=== PATIENT | male | born 1970 | race Caucasian/White ===

== ENCOUNTER 2018-10-02 11:57 | Inpatient (IN) | payer OTHER ==
[2018-10-02 12:29] LABS: ADD MAN DIFF? NO
[2018-10-02 12:34] LABS: WHITE BLOOD COUNT 5.9 10^3/ul (4.8-10.8)
[2018-10-02 12:34] LABS: BASOPHIL # 0.1 10^3/ul (0.0-0.1); EOSINOPHILS # 0.3 10^3/ul (0.0-0.5); EOSINOPHILS % 5.4 % (0.0-7.0); HEMOGLOBIN 7.7 g/dl (14.0-18.0); LYMPHOCYTES % 16.5 % (15.0-51.0); MEAN CORPUSCULAR HEMOGLOBIN 29.2 pg (29.0-33.0); MEAN CORPUSCULAR HGB CONC 32.1 g/dl (32.0-37.0); MEAN CORPUSCULAR VOLUME 90.9 fl (82.0-101.0); MEAN PLATELET VOLUME 11.1 fl (7.4-10.4); MONOCYTE # 0.6 10^3/ul (0.3-0.9); MONOCYTES % 9.6 % (0.0-11.0); NEUTROPHILS % 67.2 % (39.0-77.0); PLATELET COUNT 193 10^3/UL (140-415); RED BLOOD COUNT 2.64 10^6/ul (4.70-6.10); RED CELL DISTRIBUTION WIDTH 14.6 % (11.5-14.5)
[2018-10-02] MEDS: FUROSEMIDE 40 MG INJ IV ×2 (12:37→23:42)
[2018-10-02 12:53] LABS: ALANINE AMINOTRANSFERASE 23 IU/L (13-69); ALBUMIN 3.2 g/dl (3.3-4.9); ALBUMIN/GLOBULIN RATIO 1.03; ALKALINE PHOSPHATASE 103 IU/L (42-121); ANION GAP 7 (5-13); ASPARTATE AMINO TRANSFERASE 23 IU/L (15-46); BILIRUBIN,INDIRECT 0.5 mg/dl (0-1.1); BILIRUBIN,TOTAL 0.5 mg/dl (0.2-1.3); BLOOD UREA NITROGEN 44 mg/dl (7-20); CALCIUM 8.2 mg/dl (8.4-10.2); CARBON DIOXIDE 23 mmol/L (21-31); CHLORIDE 114 mmol/L (97-110); CREATININE 2.62 mg/dl (0.61-1.24); Estimated GFR 26 mL/min (>60); GLUCOSE 92 mg/dl (70-220); POTASSIUM 4.9 mmol/L (3.5-5.1); SODIUM 144 mmol/L (135-144); TOTAL PROTEIN 6.3 g/dl (6.1-8.1)
[2018-10-02 12:54] LABS: INR 0.95; PROTIME 12.8 Sec (11.9-14.9)
[2018-10-02 12:55] LABS: PARTIAL THROMBOPLASTIN TIME 31.5 Sec (23.0-35.0)
[2018-10-02 13:01] LABS: B-TYPE NATRIURETIC PEPTIDE 4070 PG/ML (0-125)
[2018-10-02 13:05] LABS: TROPONIN-I < 0.012 ng/ml (0.000-0.120)
[2018-10-02] MEDS ORDERED: ONDANSETRON 4 MG INJ IV ×2 (13:30→14:00)
[2018-10-02] MEDS ORDERED: ACETAMINOPHEN 325 MG TAB PO ×2 (13:30→14:00)
[2018-10-02] MEDS ORDERED: NITROGLYCERIN (SL) 0.4 MG TAB SL (14:00)
[2018-10-02] MEDS ORDERED: MAGNESIUM HYDROXIDE 30ML CUP PO (14:00)
[2018-10-02] MEDS ORDERED: DOCUSATE SODIUM 100 MG CAP PO (14:00)
[2018-10-02] MEDS ORDERED: NACL 0.9% 3 ML SYG IV (14:00)
[2018-10-02 14:01] LABS: HEMOGLOBIN A1C 5.8 % (0-5.9)
[2018-10-02] MEDS ORDERED: GLUCOSE GEL 15 GRAM TUBE BUCCAL (14:30)
[2018-10-02] MEDS ORDERED: GLUCOSE GEL 15 GRAM TUBE PO ×2 (14:30)
[2018-10-02] MEDS ORDERED: GLUCAGON 1 MG INJ IM (14:30)
[2018-10-02] MEDS ORDERED: DEXTROSE 50% 50 ML SYRINGE IV ×2 (14:30)
[2018-10-02 15:35] LABS: IRON 46 ug/dl (35-150)
[2018-10-02 15:45] LABS: % IRON SATURATION 25 % SAT (22-52); TOTAL IRON BINDING CAPACITY 183 ug/dl (241-421)
[2018-10-02 17:14] LABS: CK INDEX 1.2; TROPONIN-I < 0.012 ng/ml (0.000-0.120)
[2018-10-02 17:28] LABS: CK-MB 4.68 ng/ml (0.0-2.4); CREATINE KINASE 389 IU/L (23-200)
[2018-10-02] MEDS: NICOTINE (7 MG/24 HR) PATCH TRANSDERM (17:54)
[2018-10-02] MEDS ORDERED: BUMETANIDE 1 MG INJ IV (18:00)
[2018-10-02] MEDS: ATORVASTATIN 40 MG TAB PO (22:46)
[2018-10-02] MEDS: NIFEdipine (XL) 30 MG TAB PO (22:47)
[2018-10-02] MEDS: INSULIN ASPART [NOVOLOG] 3 ML PEN SC ×2 (23:13→23:41)
[2018-10-02] MEDS: HEPARIN 5,000 UNIT/1 ML VIAL SC (23:40)
[2018-10-02] MEDS: INSULIN GLARGINE [LANtus] 3 ML PEN SC (23:55)
[2018-10-03 01:27] LABS: CREATINE KINASE 368 IU/L (23-200)
[2018-10-03 01:37] LABS: CK INDEX 1.3; TROPONIN-I < 0.012 ng/ml (0.000-0.120)
[2018-10-03 01:45] LABS: CK-MB 4.72 ng/ml (0.0-2.4)
[2018-10-03] MEDS: PANTOPRAZOLE (EC) 40 MG TAB PO (06:30)
[2018-10-03] MEDS: FUROSEMIDE 40 MG INJ IV ×2 (06:31→17:10)
[2018-10-03 06:35] LABS: ADD MAN DIFF? NO
[2018-10-03 06:48] LABS: WHITE BLOOD COUNT 5.7 10^3/ul (4.8-10.8)
[2018-10-03 06:48] LABS: BASOPHIL # 0.1 10^3/ul (0.0-0.1); BASOPHILS % 1.1 % (0.0-2.0); EOSINOPHILS # 0.4 10^3/ul (0.0-0.5); EOSINOPHILS % 7.6 % (0.0-7.0); HEMOGLOBIN 7.4 g/dl (14.0-18.0); LYMPHOCYTES # 1.2 10^3/ul (0.8-2.9); LYMPHOCYTES % 20.5 % (15.0-51.0); MEAN CORPUSCULAR HEMOGLOBIN 29.5 pg (29.0-33.0); MEAN CORPUSCULAR HGB CONC 32.2 g/dl (32.0-37.0); MEAN CORPUSCULAR VOLUME 91.6 fl (82.0-101.0); MEAN PLATELET VOLUME 11.6 fl (7.4-10.4); MONOCYTE # 0.5 10^3/ul (0.3-0.9); MONOCYTES % 9.2 % (0.0-11.0); NEUTROPHIL # 3.5 10^3/ul (1.6-7.5); NEUTROPHILS % 61.4 % (39.0-77.0); PLATELET COUNT 188 10^3/UL (140-415); RED BLOOD COUNT 2.51 10^6/ul (4.70-6.10); RED CELL DISTRIBUTION WIDTH 14.4 % (11.5-14.5)
[2018-10-03 07:05] LABS: CREATINE KINASE 289 IU/L (23-200)
[2018-10-03 07:05] LABS: URIC ACID 8.4 mg/dl (3.1-7.9)
[2018-10-03 07:26] LABS: ANION GAP 5 (5-13); BLOOD UREA NITROGEN 45 mg/dl (7-20); CALCIUM 8.3 mg/dl (8.4-10.2); CARBON DIOXIDE 24 mmol/L (21-31); CHLORIDE 114 mmol/L (97-110); CREATININE 2.46 mg/dl (0.61-1.24); Estimated GFR 28 mL/min (>60); GLUCOSE 71 mg/dl (70-220); MAGNESIUM 2.5 mg/dl (1.7-2.5); POTASSIUM 4.9 mmol/L (3.5-5.1); SODIUM 143 mmol/L (135-144)
[2018-10-03] MEDS: INSULIN ASPART [NOVOLOG] 3 ML PEN SC ×4 (07:55→21:41)
[2018-10-03] MEDS: FERROUS SULFATE (EC) 325 MG TAB PO (09:39)
[2018-10-03] MEDS: AMLODIPINE 10 MG TAB PO (09:39)
[2018-10-03] MEDS: NICOTINE (7 MG/24 HR) PATCH TRANSDERM (09:41)
[2018-10-03] MEDS: HEPARIN 5,000 UNIT/1 ML VIAL SC ×2 (09:48→22:25)
[2018-10-03 10:56] LABS: SODIUM,URINE RANDOM 137 mmol/L (30-90)
[2018-10-03 10:58] LABS: CREATININE,URINE RANDOM 16.92 mg/dl (20-370)
[2018-10-03] MEDS: ATORVASTATIN 40 MG TAB PO (21:38)
[2018-10-03] MEDS: INSULIN GLARGINE [LANtus] 3 ML PEN SC (22:33)
[2018-10-04 06:54] LABS: ADD MAN DIFF? NO
[2018-10-04 07:00] LABS: BASOPHIL # 0.1 10^3/ul (0.0-0.1); BASOPHILS % 0.9 % (0.0-2.0); EOSINOPHILS # 0.4 10^3/ul (0.0-0.5); EOSINOPHILS % 7.6 % (0.0-7.0); HEMATOCRIT 23.3 % (42.0-52.0); HEMOGLOBIN 7.3 g/dl (14.0-18.0); LYMPHOCYTES # 1.2 10^3/ul (0.8-2.9); LYMPHOCYTES % 22.7 % (15.0-51.0); MEAN CORPUSCULAR HEMOGLOBIN 28.4 pg (29.0-33.0); MEAN CORPUSCULAR HGB CONC 31.3 g/dl (32.0-37.0); MEAN CORPUSCULAR VOLUME 90.7 fl (82.0-101.0); MEAN PLATELET VOLUME 11.5 fl (7.4-10.4); MONOCYTE # 0.6 10^3/ul (0.3-0.9); MONOCYTES % 10.2 % (0.0-11.0); NEUTROPHIL # 3.2 10^3/ul (1.6-7.5); NEUTROPHILS % 58.2 % (39.0-77.0); PLATELET COUNT 180 10^3/UL (140-415); RED BLOOD COUNT 2.57 10^6/ul (4.70-6.10); RED CELL DISTRIBUTION WIDTH 14.5 % (11.5-14.5)
[2018-10-04 07:00] LABS: WHITE BLOOD COUNT 5.4 10^3/ul (4.8-10.8)
[2018-10-04 07:28] LABS: ANION GAP 6 (5-13); BLOOD UREA NITROGEN 44 mg/dl (7-20); CALCIUM 8.3 mg/dl (8.4-10.2); CARBON DIOXIDE 26 mmol/L (21-31); CHLORIDE 111 mmol/L (97-110); CREATININE 2.88 mg/dl (0.61-1.24); Estimated GFR 24 mL/min (>60); GLUCOSE 97 mg/dl (70-220); MAGNESIUM 2.5 mg/dl (1.7-2.5); PHOSPHORUS 5.1 mg/dl (2.5-4.9); POTASSIUM 5.2 mmol/L (3.5-5.1); SODIUM 143 mmol/L (135-144)
[2018-10-04] MEDS: FUROSEMIDE 40 MG INJ IV (07:29)
[2018-10-04] MEDS: PANTOPRAZOLE (EC) 40 MG TAB PO (07:29)
[2018-10-04] MEDS: INSULIN ASPART [NOVOLOG] 3 ML PEN SC ×4 (07:55→21:00)
[2018-10-04] MEDS: AMLODIPINE 10 MG TAB PO (08:05)
[2018-10-04] MEDS: FERROUS SULFATE (EC) 325 MG TAB PO (08:05)
[2018-10-04] MEDS: NICOTINE (7 MG/24 HR) PATCH TRANSDERM (08:06)
[2018-10-04] MEDS: HEPARIN 5,000 UNIT/1 ML VIAL SC ×2 (08:10→23:06)
[2018-10-04] MEDS: FUROSEMIDE 20 MG INJ IV (17:36)
[2018-10-04] MEDS: ATORVASTATIN 40 MG TAB PO (22:50)
[2018-10-04] MEDS: INSULIN GLARGINE [LANtus] 3 ML PEN SC (23:06)
[2018-10-05] MEDS: PANTOPRAZOLE (EC) 40 MG TAB PO (06:22)
[2018-10-05] MEDS: FUROSEMIDE 20 MG INJ IV (06:24)
[2018-10-05 06:39] LABS: ADD MAN DIFF? NO
[2018-10-05 06:43] LABS: BASOPHILS % 0.7 % (0.0-2.0); EOSINOPHILS # 0.3 10^3/ul (0.0-0.5); EOSINOPHILS % 5.5 % (0.0-7.0); HEMATOCRIT 22.7 % (42.0-52.0); HEMOGLOBIN 7.5 g/dl (14.0-18.0); LYMPHOCYTES # 1.4 10^3/ul (0.8-2.9); LYMPHOCYTES % 23.6 % (15.0-51.0); MEAN CORPUSCULAR HEMOGLOBIN 29.8 pg (29.0-33.0); MEAN CORPUSCULAR VOLUME 90.1 fl (82.0-101.0); MEAN PLATELET VOLUME 11.7 fl (7.4-10.4); MONOCYTE # 0.6 10^3/ul (0.3-0.9); MONOCYTES % 9.8 % (0.0-11.0); NEUTROPHIL # 3.6 10^3/ul (1.6-7.5); NEUTROPHILS % 60.1 % (39.0-77.0); PLATELET COUNT 177 10^3/UL (140-415); RED BLOOD COUNT 2.52 10^6/ul (4.70-6.10); RED CELL DISTRIBUTION WIDTH 14.2 % (11.5-14.5)
[2018-10-05 07:06] LABS: ANION GAP 7 (5-13); BLOOD UREA NITROGEN 47 mg/dl (7-20); CALCIUM 7.8 mg/dl (8.4-10.2); CARBON DIOXIDE 23 mmol/L (21-31); CHLORIDE 112 mmol/L (97-110); CREATININE 2.97 mg/dl (0.61-1.24); Estimated GFR 23 mL/min (>60); GLUCOSE 89 mg/dl (70-220); MAGNESIUM 2.4 mg/dl (1.7-2.5); PHOSPHORUS 4.7 mg/dl (2.5-4.9); SODIUM 142 mmol/L (135-144)
[2018-10-05] MEDS: INSULIN ASPART [NOVOLOG] 3 ML PEN SC ×4 (07:55→21:00)
[2018-10-05] MEDS: CALCIUM ACETATE 667 MG CAP PO ×3 (08:25→17:32)
[2018-10-05] MEDS: NICOTINE (7 MG/24 HR) PATCH TRANSDERM (08:25)
[2018-10-05] MEDS: FERROUS SULFATE (EC) 325 MG TAB PO (08:25)
[2018-10-05] MEDS: AMLODIPINE 10 MG TAB PO (08:26)
[2018-10-05] MEDS: HEPARIN 5,000 UNIT/1 ML VIAL SC ×2 (08:31→22:38)
[2018-10-05] MEDS ORDERED: BUMETANIDE 1 MG INJ IV (12:00)
[2018-10-05] MEDS ORDERED: BUMETANIDE 2 MG in DEXTROSE 5% 17 ML IV (13:00)
[2018-10-05] MEDS: ALBUMIN HUMAN 25% 100 ML IV ×2 (13:39→22:24)
[2018-10-05] MEDS: BUMETANIDE 2 MG in DEXTROSE 5% 17 ML IV ×2 (15:25→17:30)
[2018-10-05] MEDS: SOD FERRIC GLUC COMPLX 125 MG in SOD CHLORIDE 0.9% 100 ML IVPB (15:26)
[2018-10-05] MEDS: ATORVASTATIN 40 MG TAB PO (22:25)
[2018-10-05] MEDS: INSULIN GLARGINE [LANtus] 3 ML PEN SC (22:38)
[2018-10-06] MEDS: BUMETANIDE 2 MG in DEXTROSE 5% 17 ML IV (06:06)
[2018-10-06] MEDS: PANTOPRAZOLE (EC) 40 MG TAB PO (06:06)
[2018-10-06 06:43] LABS: ADD MAN DIFF? NO
[2018-10-06 06:46] LABS: BASOPHIL # 0.1 10^3/ul (0.0-0.1); BASOPHILS % 0.9 % (0.0-2.0); EOSINOPHILS # 0.3 10^3/ul (0.0-0.5); EOSINOPHILS % 5.7 % (0.0-7.0); HEMATOCRIT 24.3 % (42.0-52.0); HEMOGLOBIN 7.8 g/dl (14.0-18.0); LYMPHOCYTES # 1.2 10^3/ul (0.8-2.9); LYMPHOCYTES % 20.2 % (15.0-51.0); MEAN CORPUSCULAR HEMOGLOBIN 28.9 pg (29.0-33.0); MEAN CORPUSCULAR HGB CONC 32.1 g/dl (32.0-37.0); MEAN PLATELET VOLUME 11.8 fl (7.4-10.4); MONOCYTE # 0.5 10^3/ul (0.3-0.9); MONOCYTES % 8.9 % (0.0-11.0); NEUTROPHIL # 3.7 10^3/ul (1.6-7.5); NEUTROPHILS % 64.1 % (39.0-77.0); PLATELET COUNT 174 10^3/UL (140-415); RED CELL DISTRIBUTION WIDTH 14.2 % (11.5-14.5)
[2018-10-06 06:46] LABS: WHITE BLOOD COUNT 5.7 10^3/ul (4.8-10.8)
[2018-10-06 07:13] LABS: ALANINE AMINOTRANSFERASE 18 IU/L (13-69); ALBUMIN 3.5 g/dl (3.3-4.9); ALBUMIN/GLOBULIN RATIO 1.12; ALKALINE PHOSPHATASE 85 IU/L (42-121); ANION GAP 9 (5-13); ASPARTATE AMINO TRANSFERASE 16 IU/L (15-46); BILIRUBIN,INDIRECT 0.5 mg/dl (0-1.1); BILIRUBIN,TOTAL 0.5 mg/dl (0.2-1.3); BLOOD UREA NITROGEN 49 mg/dl (7-20); CALCIUM 8.6 mg/dl (8.4-10.2); CARBON DIOXIDE 27 mmol/L (21-31); CHLORIDE 107 mmol/L (97-110); CREATININE 2.98 mg/dl (0.61-1.24); Estimated GFR 23 mL/min (>60); GLUCOSE 72 mg/dl (70-220); POTASSIUM 4.3 mmol/L (3.5-5.1); SODIUM 143 mmol/L (135-144); TOTAL PROTEIN 6.6 g/dl (6.1-8.1)
[2018-10-06 07:15] LABS: B-TYPE NATRIURETIC PEPTIDE 4310 PG/ML (0-125)
[2018-10-06] MEDS: INSULIN ASPART [NOVOLOG] 3 ML PEN SC ×4 (07:55→21:00)
[2018-10-06] MEDS: FERROUS SULFATE (EC) 325 MG TAB PO (08:12)
[2018-10-06] MEDS: CALCIUM ACETATE 667 MG CAP PO ×3 (08:12→17:29)
[2018-10-06] MEDS: AMLODIPINE 10 MG TAB PO (08:13)
[2018-10-06] MEDS: NICOTINE (7 MG/24 HR) PATCH TRANSDERM (08:14)
[2018-10-06] MEDS: HEPARIN 5,000 UNIT/1 ML VIAL SC ×2 (08:26→21:33)
[2018-10-06] MEDS: ALBUMIN HUMAN 25% 100 ML IV ×2 (10:08→17:28)
[2018-10-06] MEDS: METOLAZONE 5 MG TAB PO (12:08)
[2018-10-06] MEDS: SOD FERRIC GLUC COMPLX 125 MG in SOD CHLORIDE 0.9% 100 ML IVPB (14:44)
[2018-10-06] MEDS: BUMETANIDE 1 MG INJ IV (18:00)
[2018-10-06] MEDS: ATORVASTATIN 40 MG TAB PO (21:08)
[2018-10-06] MEDS: INSULIN GLARGINE [LANtus] 3 ML PEN SC (21:43)
[2018-10-07] MEDS: ALBUMIN HUMAN 25% 100 ML IV (05:24)
[2018-10-07] MEDS: BUMETANIDE 1 MG INJ IV (05:25)
[2018-10-07] MEDS: PANTOPRAZOLE (EC) 40 MG TAB PO (05:25)
[2018-10-07 06:46] LABS: ADD MAN DIFF? NO
[2018-10-07 06:48] LABS: BASOPHIL # 0.1 10^3/ul (0.0-0.1); BASOPHILS % 0.9 % (0.0-2.0); EOSINOPHILS # 0.3 10^3/ul (0.0-0.5); EOSINOPHILS % 5.7 % (0.0-7.0); HEMATOCRIT 22.2 % (42.0-52.0); HEMOGLOBIN 7.2 g/dl (14.0-18.0); LYMPHOCYTES # 1.1 10^3/ul (0.8-2.9); LYMPHOCYTES % 19.6 % (15.0-51.0); MEAN CORPUSCULAR HGB CONC 32.4 g/dl (32.0-37.0); MEAN CORPUSCULAR VOLUME 89.5 fl (82.0-101.0); MEAN PLATELET VOLUME 11.6 fl (7.4-10.4); MONOCYTE # 0.6 10^3/ul (0.3-0.9); MONOCYTES % 9.6 % (0.0-11.0); NEUTROPHIL # 3.7 10^3/ul (1.6-7.5); NEUTROPHILS % 63.7 % (39.0-77.0); PLATELET COUNT 155 10^3/UL (140-415); RED BLOOD COUNT 2.48 10^6/ul (4.70-6.10); RED CELL DISTRIBUTION WIDTH 14.4 % (11.5-14.5)
[2018-10-07 06:48] LABS: WHITE BLOOD COUNT 5.8 10^3/ul (4.8-10.8)
[2018-10-07 07:09] LABS: ANION GAP 11 (5-13); BLOOD UREA NITROGEN 57 mg/dl (7-20); CALCIUM 8.8 mg/dl (8.4-10.2); CARBON DIOXIDE 26 mmol/L (21-31); CHLORIDE 107 mmol/L (97-110); Estimated GFR 21 mL/min (>60); GLUCOSE 115 mg/dl (70-220); MAGNESIUM 2.4 mg/dl (1.7-2.5); PHOSPHORUS 4.8 mg/dl (2.5-4.9); POTASSIUM 4.2 mmol/L (3.5-5.1); SODIUM 144 mmol/L (135-144)
[2018-10-07] MEDS: INSULIN ASPART [NOVOLOG] 3 ML PEN SC ×4 (07:55→21:00)
[2018-10-07] MEDS: FERROUS SULFATE (EC) 325 MG TAB PO (08:15)
[2018-10-07] MEDS: CALCIUM ACETATE 667 MG CAP PO ×3 (08:15→17:55)
[2018-10-07] MEDS: NICOTINE (7 MG/24 HR) PATCH TRANSDERM (08:16)
[2018-10-07] MEDS: AMLODIPINE 10 MG TAB PO (08:16)
[2018-10-07] MEDS: HEPARIN 5,000 UNIT/1 ML VIAL SC ×2 (08:38→21:06)
[2018-10-07] MEDS: SOD FERRIC GLUC COMPLX 125 MG in SOD CHLORIDE 0.9% 100 ML IVPB (13:00)
[2018-10-07] MEDS: ATORVASTATIN 40 MG TAB PO (20:42)
[2018-10-07] MEDS: INSULIN GLARGINE [LANtus] 3 ML PEN SC (21:58)
[2018-10-08] MEDS: PANTOPRAZOLE (EC) 40 MG TAB PO (06:14)
[2018-10-08 06:56] LABS: ADD MAN DIFF? NO
[2018-10-08 07:00] LABS: WHITE BLOOD COUNT 6.1 10^3/ul (4.8-10.8)
[2018-10-08 07:00] LABS: BASOPHILS % 0.5 % (0.0-2.0); EOSINOPHILS # 0.4 10^3/ul (0.0-0.5); EOSINOPHILS % 6.6 % (0.0-7.0); HEMATOCRIT 22.4 % (42.0-52.0); HEMOGLOBIN 7.3 g/dl (14.0-18.0); LYMPHOCYTES # 1.2 10^3/ul (0.8-2.9); LYMPHOCYTES % 19.8 % (15.0-51.0); MEAN CORPUSCULAR HEMOGLOBIN 29.3 pg (29.0-33.0); MEAN CORPUSCULAR HGB CONC 32.6 g/dl (32.0-37.0); MEAN PLATELET VOLUME 12.1 fl (7.4-10.4); MONOCYTE # 0.7 10^3/ul (0.3-0.9); MONOCYTES % 12.2 % (0.0-11.0); NEUTROPHIL # 3.7 10^3/ul (1.6-7.5); NEUTROPHILS % 60.6 % (39.0-77.0); PLATELET COUNT 163 10^3/UL (140-415); RED BLOOD COUNT 2.49 10^6/ul (4.70-6.10); RED CELL DISTRIBUTION WIDTH 14.3 % (11.5-14.5)
[2018-10-08] MEDS: INSULIN ASPART [NOVOLOG] 3 ML PEN SC ×4 (07:49→22:10)
[2018-10-08] MEDS: CALCIUM ACETATE 667 MG CAP PO ×3 (07:50→17:31)
[2018-10-08] MEDS: AMLODIPINE 10 MG TAB PO (08:14)
[2018-10-08] MEDS: NICOTINE (7 MG/24 HR) PATCH TRANSDERM (08:14)
[2018-10-08] MEDS: HEPARIN 5,000 UNIT/1 ML VIAL SC ×2 (08:18→20:47)
[2018-10-08 08:20] LABS: ANION GAP 10 (5-13); BLOOD UREA NITROGEN 65 mg/dl (7-20); CALCIUM 8.7 mg/dl (8.4-10.2); CARBON DIOXIDE 26 mmol/L (21-31); CHLORIDE 107 mmol/L (97-110); Estimated GFR 19 mL/min (>60); GLUCOSE 86 mg/dl (70-220); MAGNESIUM 2.5 mg/dl (1.7-2.5); PHOSPHORUS 5.1 mg/dl (2.5-4.9); POTASSIUM 4.2 mmol/L (3.5-5.1); SODIUM 143 mmol/L (135-144)
[2018-10-08] MEDS: SOD FERRIC GLUC COMPLX 125 MG in SOD CHLORIDE 0.9% 100 ML IVPB (13:12)
[2018-10-08] MEDS: ATORVASTATIN 40 MG TAB PO (20:24)
[2018-10-08] MEDS: INSULIN GLARGINE [LANtus] 3 ML PEN SC (22:11)
[2018-10-09] MEDS: PANTOPRAZOLE (EC) 40 MG TAB PO (05:45)
[2018-10-09] MEDS: INSULIN ASPART [NOVOLOG] 3 ML PEN SC ×4 (07:38→21:00)
[2018-10-09] MEDS: CALCIUM ACETATE 667 MG CAP PO ×3 (08:05→17:07)
[2018-10-09] MEDS: AMLODIPINE 10 MG TAB PO (08:06)
[2018-10-09] MEDS: NICOTINE (7 MG/24 HR) PATCH TRANSDERM (08:06)
[2018-10-09] MEDS: HEPARIN 5,000 UNIT/1 ML VIAL SC ×2 (08:10→21:19)
[2018-10-09 08:16] LABS: ADD MAN DIFF? NO
[2018-10-09 08:31] LABS: BASOPHIL # 0.1 10^3/ul (0.0-0.1); BASOPHILS % 0.8 % (0.0-2.0); EOSINOPHILS # 0.4 10^3/ul (0.0-0.5); EOSINOPHILS % 6.7 % (0.0-7.0); HEMATOCRIT 22.9 % (42.0-52.0); HEMOGLOBIN 7.4 g/dl (14.0-18.0); LYMPHOCYTES # 1.3 10^3/ul (0.8-2.9); LYMPHOCYTES % 20.9 % (15.0-51.0); MEAN CORPUSCULAR HEMOGLOBIN 28.9 pg (29.0-33.0); MEAN CORPUSCULAR HGB CONC 32.3 g/dl (32.0-37.0); MEAN CORPUSCULAR VOLUME 89.5 fl (82.0-101.0); MEAN PLATELET VOLUME 12.3 fl (7.4-10.4); MONOCYTE # 0.6 10^3/ul (0.3-0.9); MONOCYTES % 10.5 % (0.0-11.0); NEUTROPHIL # 3.7 10^3/ul (1.6-7.5); NEUTROPHILS % 60.8 % (39.0-77.0); PLATELET COUNT 160 10^3/UL (140-415); RED BLOOD COUNT 2.56 10^6/ul (4.70-6.10); RED CELL DISTRIBUTION WIDTH 14.5 % (11.5-14.5)
[2018-10-09 08:31] LABS: WHITE BLOOD COUNT 6.1 10^3/ul (4.8-10.8)
[2018-10-09 08:51] LABS: ANION GAP 9 (5-13); BLOOD UREA NITROGEN 74 mg/dl (7-20); CALCIUM 8.6 mg/dl (8.4-10.2); CARBON DIOXIDE 26 mmol/L (21-31); CHLORIDE 107 mmol/L (97-110); CREATININE 3.51 mg/dl (0.61-1.24); Estimated GFR 19 mL/min (>60); GLUCOSE 88 mg/dl (70-220); MAGNESIUM 2.6 mg/dl (1.7-2.5); PHOSPHORUS 4.8 mg/dl (2.5-4.9); POTASSIUM 4.4 mmol/L (3.5-5.1); SODIUM 142 mmol/L (135-144)
[2018-10-09] MEDS: SOD FERRIC GLUC COMPLX 125 MG in SOD CHLORIDE 0.9% 100 ML IVPB (13:02)
[2018-10-09] MEDS: ATORVASTATIN 40 MG TAB PO (21:08)
[2018-10-09] MEDS: INSULIN GLARGINE [LANtus] 3 ML PEN SC (21:18)
[2018-10-10] MEDS: PANTOPRAZOLE (EC) 40 MG TAB PO (06:21)
[2018-10-10 07:31] LABS: ADD MAN DIFF? NO
[2018-10-10 07:36] LABS: BASOPHIL # 0.1 10^3/ul (0.0-0.1); BASOPHILS % 0.9 % (0.0-2.0); EOSINOPHILS # 0.3 10^3/ul (0.0-0.5); EOSINOPHILS % 5.8 % (0.0-7.0); HEMOGLOBIN 7.3 g/dl (14.0-18.0); LYMPHOCYTES # 1.2 10^3/ul (0.8-2.9); MEAN CORPUSCULAR HEMOGLOBIN 29.3 pg (29.0-33.0); MEAN CORPUSCULAR HGB CONC 31.7 g/dl (32.0-37.0); MEAN CORPUSCULAR VOLUME 92.4 fl (82.0-101.0); MEAN PLATELET VOLUME 12.3 fl (7.4-10.4); MONOCYTE # 0.7 10^3/ul (0.3-0.9); MONOCYTES % 12.2 % (0.0-11.0); NEUTROPHIL # 3.5 10^3/ul (1.6-7.5); NEUTROPHILS % 59.8 % (39.0-77.0); PLATELET COUNT 172 10^3/UL (140-415); RED BLOOD COUNT 2.49 10^6/ul (4.70-6.10); RED CELL DISTRIBUTION WIDTH 14.5 % (11.5-14.5)
[2018-10-10 07:36] LABS: WHITE BLOOD COUNT 5.8 10^3/ul (4.8-10.8)
[2018-10-10] MEDS: INSULIN ASPART [NOVOLOG] 3 ML PEN SC ×4 (07:55→21:00)
[2018-10-10 08:07] LABS: ANION GAP 7 (5-13); B-TYPE NATRIURETIC PEPTIDE 4600 PG/ML (0-125); BLOOD UREA NITROGEN 77 mg/dl (7-20); CALCIUM 8.7 mg/dl (8.4-10.2); CARBON DIOXIDE 27 mmol/L (21-31); CHLORIDE 108 mmol/L (97-110); CREATININE 3.36 mg/dl (0.61-1.24); Estimated GFR 20 mL/min (>60); GLUCOSE 84 mg/dl (70-220); MAGNESIUM 2.7 mg/dl (1.7-2.5); PHOSPHORUS 4.7 mg/dl (2.5-4.9); POTASSIUM 4.5 mmol/L (3.5-5.1); SODIUM 142 mmol/L (135-144)
[2018-10-10 08:08] LABS: URIC ACID 9.3 mg/dl (3.1-7.9)
[2018-10-10] MEDS: CALCIUM ACETATE 667 MG CAP PO ×3 (08:10→17:30)
[2018-10-10] MEDS: NICOTINE (7 MG/24 HR) PATCH TRANSDERM (08:11)
[2018-10-10] MEDS: AMLODIPINE 10 MG TAB PO (08:11)
[2018-10-10] MEDS: HEPARIN 5,000 UNIT/1 ML VIAL SC ×2 (08:17→20:23)
[2018-10-10] MEDS: BUMETANIDE 1 MG TAB PO ×2 (11:44→17:29)
[2018-10-10] MEDS: ATORVASTATIN 40 MG TAB PO (20:12)
[2018-10-10] MEDS: INSULIN GLARGINE [LANtus] 3 ML PEN SC (21:36)
[2018-10-11] MEDS: BUMETANIDE 1 MG TAB PO (06:20)
[2018-10-11] MEDS: PANTOPRAZOLE (EC) 40 MG TAB PO (06:20)
[2018-10-11 07:08] LABS: ADD MAN DIFF? NO
[2018-10-11 07:11] LABS: WHITE BLOOD COUNT 6.2 10^3/ul (4.8-10.8)
[2018-10-11 07:11] LABS: BASOPHIL # 0.1 10^3/ul (0.0-0.1); BASOPHILS % 0.8 % (0.0-2.0); EOSINOPHILS # 0.4 10^3/ul (0.0-0.5); EOSINOPHILS % 6.7 % (0.0-7.0); HEMATOCRIT 23.2 % (42.0-52.0); HEMOGLOBIN 7.5 g/dl (14.0-18.0); LYMPHOCYTES # 1.2 10^3/ul (0.8-2.9); LYMPHOCYTES % 19.7 % (15.0-51.0); MEAN CORPUSCULAR HGB CONC 32.3 g/dl (32.0-37.0); MEAN CORPUSCULAR VOLUME 89.6 fl (82.0-101.0); MEAN PLATELET VOLUME 11.9 fl (7.4-10.4); MONOCYTE # 0.7 10^3/ul (0.3-0.9); MONOCYTES % 10.7 % (0.0-11.0); NEUTROPHIL # 3.8 10^3/ul (1.6-7.5); NEUTROPHILS % 61.8 % (39.0-77.0); PLATELET COUNT 168 10^3/UL (140-415); RED BLOOD COUNT 2.59 10^6/ul (4.70-6.10); RED CELL DISTRIBUTION WIDTH 14.4 % (11.5-14.5)
[2018-10-11 07:30] LABS: ALBUMIN 3.5 g/dl (3.3-4.9); ANION GAP 7 (5-13); BLOOD UREA NITROGEN 77 mg/dl (7-20); CARBON DIOXIDE 26 mmol/L (21-31); CHLORIDE 107 mmol/L (97-110); CREATININE 3.41 mg/dl (0.61-1.24); GLUCOSE 92 mg/dl (70-220); MAGNESIUM 2.5 mg/dl (1.7-2.5); PHOSPHORUS 4.7 mg/dl (2.5-4.9); POTASSIUM 4.4 mmol/L (3.5-5.1); SODIUM 140 mmol/L (135-144)
[2018-10-11] MEDS: INSULIN ASPART [NOVOLOG] 3 ML PEN SC ×4 (07:50→21:36)
[2018-10-11] MEDS: CALCIUM ACETATE 667 MG CAP PO ×3 (07:57→17:47)
[2018-10-11] MEDS: FUROSEMIDE 20 MG INJ IV ×2 (08:30→17:47)
[2018-10-11] MEDS: AMLODIPINE 10 MG TAB PO (08:37)
[2018-10-11] MEDS: NICOTINE (7 MG/24 HR) PATCH TRANSDERM (08:39)
[2018-10-11] MEDS: HEPARIN 5,000 UNIT/1 ML VIAL SC ×2 (08:44→21:36)
[2018-10-11] MEDS: METOLAZONE 2.5 MG TAB PO (11:51)
[2018-10-11] MEDS: ATORVASTATIN 40 MG TAB PO (21:12)
[2018-10-11] MEDS: INSULIN GLARGINE [LANTus] (100 UNITS/ML) SYG SC (22:47)
[2018-10-12] MEDS: FUROSEMIDE 20 MG INJ IV ×2 (06:30→17:08)
[2018-10-12] MEDS: PANTOPRAZOLE (EC) 40 MG TAB PO (06:30)
[2018-10-12 06:52] LABS: ADD MAN DIFF? NO
[2018-10-12 06:58] LABS: WHITE BLOOD COUNT 5.9 10^3/ul (4.8-10.8)
[2018-10-12 06:58] LABS: BASOPHILS % 0.7 % (0.0-2.0); EOSINOPHILS # 0.4 10^3/ul (0.0-0.5); EOSINOPHILS % 6.5 % (0.0-7.0); HEMATOCRIT 22.9 % (42.0-52.0); HEMOGLOBIN 7.2 g/dl (14.0-18.0); LYMPHOCYTES # 1.3 10^3/ul (0.8-2.9); LYMPHOCYTES % 22.1 % (15.0-51.0); MEAN CORPUSCULAR HEMOGLOBIN 29.1 pg (29.0-33.0); MEAN CORPUSCULAR HGB CONC 31.4 g/dl (32.0-37.0); MEAN CORPUSCULAR VOLUME 92.7 fl (82.0-101.0); MONOCYTE # 0.7 10^3/ul (0.3-0.9); MONOCYTES % 12.1 % (0.0-11.0); NEUTROPHIL # 3.4 10^3/ul (1.6-7.5); NEUTROPHILS % 58.3 % (39.0-77.0); PLATELET COUNT 165 10^3/UL (140-415); RED BLOOD COUNT 2.47 10^6/ul (4.70-6.10); RED CELL DISTRIBUTION WIDTH 14.4 % (11.5-14.5)
[2018-10-12 07:19] LABS: ALBUMIN 3.3 g/dl (3.3-4.9); ANION GAP 8 (5-13); BLOOD UREA NITROGEN 81 mg/dl (7-20); CALCIUM 8.6 mg/dl (8.4-10.2); CARBON DIOXIDE 28 mmol/L (21-31); CHLORIDE 107 mmol/L (97-110); CREATININE 3.55 mg/dl (0.61-1.24); GLUCOSE 126 mg/dl (70-220); MAGNESIUM 2.6 mg/dl (1.7-2.5); PHOSPHORUS 4.8 mg/dl (2.5-4.9); POTASSIUM 4.7 mmol/L (3.5-5.1); SODIUM 143 mmol/L (135-144)
[2018-10-12] MEDS: INSULIN ASPART [NOVOLOG] 3 ML PEN SC ×4 (07:37→21:00)
[2018-10-12] MEDS: CALCIUM ACETATE 667 MG CAP PO ×3 (07:59→17:07)
[2018-10-12] MEDS: NICOTINE (7 MG/24 HR) PATCH TRANSDERM (08:12)
[2018-10-12] MEDS: AMLODIPINE 10 MG TAB PO (08:14)
[2018-10-12] MEDS: HEPARIN 5,000 UNIT/1 ML VIAL SC ×2 (08:36→22:03)
[2018-10-12] MEDS: ATORVASTATIN 40 MG TAB PO (21:52)
[2018-10-12] MEDS: INSULIN GLARGINE [LANTus] (100 UNITS/ML) SYG SC (22:35)
[2018-10-13] MEDS: PANTOPRAZOLE (EC) 40 MG TAB PO (05:46)
[2018-10-13] MEDS: FUROSEMIDE 20 MG INJ IV (05:47)
[2018-10-13] MEDS: INSULIN ASPART [NOVOLOG] 3 ML PEN SC ×3 (07:55→17:41)
[2018-10-13 08:11] LABS: ADD MAN DIFF? NO
[2018-10-13 08:21] LABS: WHITE BLOOD COUNT 6.3 10^3/ul (4.8-10.8)
[2018-10-13 08:21] LABS: BASOPHILS % 0.6 % (0.0-2.0); EOSINOPHILS # 0.4 10^3/ul (0.0-0.5); EOSINOPHILS % 5.7 % (0.0-7.0); HEMATOCRIT 23.2 % (42.0-52.0); HEMOGLOBIN 7.4 g/dl (14.0-18.0); LYMPHOCYTES # 1.3 10^3/ul (0.8-2.9); LYMPHOCYTES % 19.8 % (15.0-51.0); MEAN CORPUSCULAR HEMOGLOBIN 29.1 pg (29.0-33.0); MEAN CORPUSCULAR HGB CONC 31.9 g/dl (32.0-37.0); MEAN CORPUSCULAR VOLUME 91.3 fl (82.0-101.0); MEAN PLATELET VOLUME 12.3 fl (7.4-10.4); MONOCYTE # 0.6 10^3/ul (0.3-0.9); MONOCYTES % 9.8 % (0.0-11.0); NEUTROPHILS % 63.8 % (39.0-77.0); PLATELET COUNT 186 10^3/UL (140-415); RED BLOOD COUNT 2.54 10^6/ul (4.70-6.10); RED CELL DISTRIBUTION WIDTH 14.5 % (11.5-14.5)
[2018-10-13] MEDS: CALCIUM ACETATE 667 MG CAP PO ×3 (08:24→17:47)
[2018-10-13] MEDS: AMLODIPINE 10 MG TAB PO (08:26)
[2018-10-13] MEDS: NICOTINE (7 MG/24 HR) PATCH TRANSDERM (08:26)
[2018-10-13] MEDS: HEPARIN 5,000 UNIT/1 ML VIAL SC (08:30)
[2018-10-13 08:50] LABS: ALBUMIN 3.4 g/dl (3.3-4.9); ANION GAP 9 (5-13); BLOOD UREA NITROGEN 84 mg/dl (7-20); CALCIUM 8.8 mg/dl (8.4-10.2); CARBON DIOXIDE 27 mmol/L (21-31); CHLORIDE 105 mmol/L (97-110); CREATININE 3.45 mg/dl (0.61-1.24); GLUCOSE 82 mg/dl (70-220); MAGNESIUM 2.5 mg/dl (1.7-2.5); POTASSIUM 4.3 mmol/L (3.5-5.1); SODIUM 141 mmol/L (135-144)
[2018-10-13] MEDS: BUMETANIDE 1 MG TAB PO (17:47)
== END 2018-10-13 19:18 | disposition home or self-care (01) | DRG 291 ==
LOC: E/R 11:57 → TEL 13:26
DX: I13.0 Hypertensive heart and chronic kidney disease with heart failure and stage 1 through stage 4 chronic kidney disease, or unspecified chronic kidney disease (principal); I50.33 Acute on chronic diastolic (congestive) heart failure; N17.9 Acute kidney failure, unspecified; E11.22 Type 2 diabetes mellitus with diabetic chronic kidney disease; F17.200 Nicotine dependence, unspecified, uncomplicated; N18.9 Chronic kidney disease, unspecified; D63.8 Anemia in other chronic diseases classified elsewhere; K59.00 Constipation, unspecified; F17.210 Nicotine dependence, cigarettes, uncomplicated; Z79.4 Long term (current) use of insulin
CPT/HCPCS: 36415; 71045; 76775; 80048; 80053; 80069; 81003; 82550; 82553; 82570; 82962; 83036; 83540; 83735; 83880; 84100; 84300; 84484; 84560; 85025; 85610; 85730; 89190; 93005; 93306; 93970; 96374; 97110; 97116; 97161; 97165; 99285-25

== ENCOUNTER 2018-11-04 17:40 | Inpatient (IN) | payer OTHER ==
[2018-11-04] MEDS: FUROSEMIDE 40 MG INJ IV (18:55)
[2018-11-04] MEDS: NITROGLYCERIN 2% 1 GM OINT PKT TD (18:55)
[2018-11-04] MEDS: ASPIRIN 81 MG TAB PO (18:55)
[2018-11-04 19:07] LABS: ADD MAN DIFF? NO
[2018-11-04 19:13] LABS: WHITE BLOOD COUNT 6.6 10^3/ul (4.8-10.8)
[2018-11-04 19:13] LABS: BASOPHILS % 0.6 % (0.0-2.0); EOSINOPHILS # 0.3 10^3/ul (0.0-0.5); EOSINOPHILS % 4.7 % (0.0-7.0); HEMATOCRIT 23.1 % (42.0-52.0); HEMOGLOBIN 7.6 g/dl (14.0-18.0); LYMPHOCYTES # 1.2 10^3/ul (0.8-2.9); LYMPHOCYTES % 17.7 % (15.0-51.0); MEAN CORPUSCULAR HEMOGLOBIN 30.2 pg (29.0-33.0); MEAN CORPUSCULAR HGB CONC 32.9 g/dl (32.0-37.0); MEAN CORPUSCULAR VOLUME 91.7 fl (82.0-101.0); MEAN PLATELET VOLUME 11.6 fl (7.4-10.4); MONOCYTE # 0.5 10^3/ul (0.3-0.9); MONOCYTES % 7.5 % (0.0-11.0); NEUTROPHIL # 4.5 10^3/ul (1.6-7.5); PLATELET COUNT 157 10^3/UL (140-415); POSITIVE DIFF @See below; RED BLOOD COUNT 2.52 10^6/ul (4.70-6.10); RED CELL DISTRIBUTION WIDTH 13.7 % (11.5-14.5)
[2018-11-04 19:24] LABS: ANION GAP 7 (5-13); BLOOD UREA NITROGEN 48 mg/dl (7-20); CALCIUM 8.1 mg/dl (8.4-10.2); CARBON DIOXIDE 19 mmol/L (21-31); CHLORIDE 116 mmol/L (97-110); CREATININE 2.78 mg/dl (0.61-1.24); Estimated GFR 25 mL/min (>60); GLUCOSE 160 mg/dl (70-220); POTASSIUM 5.1 mmol/L (3.5-5.1); SODIUM 142 mmol/L (135-144)
[2018-11-04 19:37] LABS: B-TYPE NATRIURETIC PEPTIDE 5730 PG/ML (0-125); TROPONIN-I < 0.012 ng/ml (0.000-0.120)
[2018-11-04] MEDS ORDERED: ACETAMINOPHEN 325 MG TAB PO (20:00)
[2018-11-04] MEDS ORDERED: ONDANSETRON 4 MG INJ IV ×2 (20:00→23:00)
[2018-11-04] MEDS ORDERED: NACL 0.9% 3 ML SYG IV (23:00)
[2018-11-04] MEDS ORDERED: ALBUTEROL/IPRATROPIUM (NEB) 3 ML AMP HHN (23:00)
[2018-11-05 00:16] LABS: CREATINE KINASE 432 IU/L (23-200)
[2018-11-05 00:29] LABS: CK INDEX 1.4; TROPONIN-I < 0.012 ng/ml (0.000-0.120)
[2018-11-05 00:32] LABS: CK-MB 5.93 ng/ml (0.0-2.4)
[2018-11-05 06:08] LABS: ADD MAN DIFF? NO
[2018-11-05 06:18] LABS: WHITE BLOOD COUNT 6.1 10^3/ul (4.8-10.8)
[2018-11-05 06:18] LABS: BASOPHILS % 0.5 % (0.0-2.0); EOSINOPHILS # 0.3 10^3/ul (0.0-0.5); EOSINOPHILS % 5.4 % (0.0-7.0); HEMATOCRIT 23.8 % (42.0-52.0); HEMOGLOBIN 7.6 g/dl (14.0-18.0); LYMPHOCYTES # 1.1 10^3/ul (0.8-2.9); LYMPHOCYTES % 17.9 % (15.0-51.0); MEAN CORPUSCULAR HEMOGLOBIN 29.7 pg (29.0-33.0); MEAN CORPUSCULAR HGB CONC 31.9 g/dl (32.0-37.0); MEAN PLATELET VOLUME 10.8 fl (7.4-10.4); MONOCYTE # 0.6 10^3/ul (0.3-0.9); MONOCYTES % 10.2 % (0.0-11.0); NEUTROPHILS % 65.7 % (39.0-77.0); PLATELET COUNT 169 10^3/UL (140-415); RED BLOOD COUNT 2.56 10^6/ul (4.70-6.10); RED CELL DISTRIBUTION WIDTH 13.7 % (11.5-14.5)
[2018-11-05 07:18] LABS: CK-MB 4.68 ng/ml (0.0-2.4); TROPONIN-I < 0.012 ng/ml (0.000-0.120)
[2018-11-05 07:23] LABS: ALANINE AMINOTRANSFERASE 25 IU/L (13-69); ALBUMIN 2.9 g/dl (3.3-4.9); ALBUMIN/GLOBULIN RATIO 0.93; ALKALINE PHOSPHATASE 128 IU/L (42-121); ANION GAP 6 (5-13); ASPARTATE AMINO TRANSFERASE 18 IU/L (15-46); BILIRUBIN,INDIRECT 0.4 mg/dl (0-1.1); BILIRUBIN,TOTAL 0.4 mg/dl (0.2-1.3); BLOOD UREA NITROGEN 47 mg/dl (7-20); CALCIUM 8.2 mg/dl (8.4-10.2); CARBON DIOXIDE 20 mmol/L (21-31); CHLORIDE 116 mmol/L (97-110); CREATININE 2.81 mg/dl (0.61-1.24); Estimated GFR 24 mL/min (>60); GLUCOSE 89 mg/dl (70-220); MAGNESIUM 2.6 mg/dl (1.7-2.5); POTASSIUM 4.9 mmol/L (3.5-5.1); SODIUM 142 mmol/L (135-144)
[2018-11-05 07:36] LABS: CK INDEX 1.3; CREATINE KINASE 352 IU/L (23-200)
[2018-11-05] MEDS: CALCIUM ACETATE 667 MG CAP PO ×3 (07:51→17:26)
[2018-11-05] MEDS: BUMETANIDE 1 MG TAB PO ×2 (08:19→20:44)
[2018-11-05] MEDS: AMLODIPINE 10 MG TAB PO (08:19)
[2018-11-05] MEDS: FERROUS SULFATE (EC) 325 MG TAB PO (08:19)
[2018-11-05] MEDS ORDERED: CEPASTAT LOZENGE MT (11:00)
[2018-11-05] MEDS ORDERED: GLUCOSE GEL 15 GRAM TUBE PO ×2 (11:30)
[2018-11-05] MEDS ORDERED: GLUCOSE GEL 15 GRAM TUBE BUCCAL (11:30)
[2018-11-05] MEDS ORDERED: GLUCAGON 1 MG INJ IM (11:30)
[2018-11-05] MEDS ORDERED: DEXTROSE 50% 50 ML SYRINGE IV ×2 (11:30)
[2018-11-05] MEDS: INSULIN ASPART [NOVOLOG] 3 ML PEN SC ×3 (11:33→20:44)
[2018-11-05] MEDS: EPOETIN ALFA-EPBX (NON-ESRD 10,000 UNIT/ML VIAL SC (17:28)
[2018-11-05 18:29] LABS: PARATHYROID HORMONE 0.1 pg/ml (24.0-73.0)
[2018-11-05 19:24] LABS: ADD UMIC YES; UR ASCORBIC ACID NEGATIVE (NEGATIVE); UR BILIRUBIN (Dip) NEGATIVE (NEGATIVE); UR BLOOD (Dip) 1+ mg/dL (NEGATIVE); UR CLARITY CLEAR (CLEAR); UR COLOR YELLOW (YELLOW); UR GLUCOSE (Dip) 1+ mg/dL (NEGATIVE); UR KETONES (Dip) NEGATIVE (NEGATIVE); UR LEUKOCYTE ESTERASE (Dip) NEGATIVE Leu/ul (NEGATIVE); UR NITRITE (Dip) NEGATIVE (NEGATIVE); UR RBC 7 /HPF (0-5); UR TOTAL PROTEIN (Dip) 3+ mg/dl (NEGATIVE); UR UROBILINOGEN (Dip) NEGATIVE (NEGATIVE); UR WBC 0 /HPF (0-5)
[2018-11-05 19:35] LABS: SODIUM,URINE RANDOM 91 mmol/L (30-90)
[2018-11-05 19:43] LABS: PROTEIN URINE > 600.0 mg/dl (0.0-11.9)
[2018-11-05] MEDS: ATORVASTATIN 40 MG TAB PO (20:44)
[2018-11-06 06:33] LABS: ADD MAN DIFF? NO
[2018-11-06 06:36] LABS: BASOPHIL # 0.1 10^3/ul (0.0-0.1); BASOPHILS % 0.7 % (0.0-2.0); EOSINOPHILS # 0.3 10^3/ul (0.0-0.5); EOSINOPHILS % 3.4 % (0.0-7.0); HEMATOCRIT 23.5 % (42.0-52.0); HEMOGLOBIN 7.6 g/dl (14.0-18.0); LYMPHOCYTES # 1.4 10^3/ul (0.8-2.9); LYMPHOCYTES % 15.9 % (15.0-51.0); MEAN CORPUSCULAR HEMOGLOBIN 29.5 pg (29.0-33.0); MEAN CORPUSCULAR HGB CONC 32.3 g/dl (32.0-37.0); MEAN CORPUSCULAR VOLUME 91.1 fl (82.0-101.0); MONOCYTE # 0.8 10^3/ul (0.3-0.9); MONOCYTES % 8.6 % (0.0-11.0); NEUTROPHIL # 6.4 10^3/ul (1.6-7.5); PLATELET COUNT 179 10^3/UL (140-415); RED BLOOD COUNT 2.58 10^6/ul (4.70-6.10); RED CELL DISTRIBUTION WIDTH 13.7 % (11.5-14.5)
[2018-11-06] MEDS: INSULIN ASPART [NOVOLOG] 3 ML PEN SC ×4 (07:18→21:00)
[2018-11-06 07:26] LABS: ANION GAP 6 (5-13); BLOOD UREA NITROGEN 46 mg/dl (7-20); CARBON DIOXIDE 20 mmol/L (21-31); CHLORIDE 115 mmol/L (97-110); CREATININE 2.69 mg/dl (0.61-1.24); Estimated GFR 25 mL/min (>60); GLUCOSE 86 mg/dl (70-220); POTASSIUM 4.4 mmol/L (3.5-5.1); SODIUM 141 mmol/L (135-144)
[2018-11-06 07:42] LABS: MAGNESIUM 2.5 mg/dl (1.7-2.5)
[2018-11-06 07:42] LABS: PHOSPHORUS 4.6 mg/dl (2.5-4.9)
[2018-11-06] MEDS: CALCIUM ACETATE 667 MG CAP PO ×3 (07:55→17:20)
[2018-11-06] MEDS: FERROUS SULFATE (EC) 325 MG TAB PO (08:15)
[2018-11-06] MEDS: AMLODIPINE 10 MG TAB PO (08:16)
[2018-11-06] MEDS: CHOLECALCIFEROL 2,000 UNIT CAP PO (08:16)
[2018-11-06] MEDS: BUMETANIDE 1 MG TAB PO ×2 (08:16→21:07)
[2018-11-06] MEDS: ATORVASTATIN 40 MG TAB PO (21:07)
[2018-11-07] MEDS: INSULIN ASPART [NOVOLOG] 3 ML PEN SC ×4 (07:55→20:56)
[2018-11-07] MEDS: FERROUS SULFATE (EC) 325 MG TAB PO (08:14)
[2018-11-07] MEDS: CHOLECALCIFEROL 2,000 UNIT CAP PO (08:14)
[2018-11-07] MEDS: BUMETANIDE 1 MG TAB PO ×2 (08:14→20:52)
[2018-11-07] MEDS: LISINOPRIL 5 MG TAB PO (08:14)
[2018-11-07] MEDS: CALCIUM ACETATE 667 MG CAP PO ×3 (08:15→17:32)
[2018-11-07] MEDS: AMLODIPINE 10 MG TAB PO (08:15)
[2018-11-07] MEDS: hydrALAzine 20 MG INJ IV ×2 (09:41→21:17)
[2018-11-07 12:37] LABS: PROTEIN, TOTAL 5.5 g/dL (6.1-8.1)
[2018-11-07 15:01] LABS: CREATININE, RANDOM URINE 90 mg/dL (20-320); PROTEIN/CREATININE RATIO 1289 mg/g creat (22-128)
[2018-11-07] MEDS: METOPROLOL (XL) 50 MG TAB PO (15:01)
[2018-11-07 15:53] LABS: AMPHETAMINE/METHAMPHETAMINE Negative (NEGATIVE); BARBITURATES Negative (NEGATIVE); BENZODIAZEPINES Negative (NEGATIVE); CANNABINOIDS Negative (NEGATIVE); COCAINE Negative (NEGATIVE); OPIATES Negative (NEGATIVE)
[2018-11-07] MEDS: ATORVASTATIN 40 MG TAB PO (20:52)
[2018-11-08] MEDS: hydrALAzine 20 MG INJ IV ×3 (05:18→21:14)
[2018-11-08 06:28] LABS: ADD MAN DIFF? NO
[2018-11-08 06:30] LABS: BASOPHIL # 0.1 10^3/ul (0.0-0.1); BASOPHILS % 0.6 % (0.0-2.0); EOSINOPHILS # 0.4 10^3/ul (0.0-0.5); EOSINOPHILS % 5.6 % (0.0-7.0); HEMOGLOBIN 8.2 g/dl (14.0-18.0); LYMPHOCYTES # 1.3 10^3/ul (0.8-2.9); LYMPHOCYTES % 16.8 % (15.0-51.0); MEAN CORPUSCULAR HEMOGLOBIN 29.3 pg (29.0-33.0); MEAN CORPUSCULAR HGB CONC 32.8 g/dl (32.0-37.0); MEAN CORPUSCULAR VOLUME 89.3 fl (82.0-101.0); MEAN PLATELET VOLUME 10.5 fl (7.4-10.4); MONOCYTE # 0.7 10^3/ul (0.3-0.9); MONOCYTES % 9.4 % (0.0-11.0); NEUTROPHIL # 5.3 10^3/ul (1.6-7.5); NEUTROPHILS % 67.2 % (39.0-77.0); PLATELET COUNT 219 10^3/UL (140-415); RED CELL DISTRIBUTION WIDTH 13.7 % (11.5-14.5)
[2018-11-08 06:30] LABS: WHITE BLOOD COUNT 7.9 10^3/ul (4.8-10.8)
[2018-11-08 06:57] LABS: INR 1.02; PROTIME 13.5 Sec (11.9-14.9); PT RATIO 1.1
[2018-11-08 06:58] LABS: ANION GAP 6 (5-13); BLOOD UREA NITROGEN 42 mg/dl (7-20); CALCIUM 8.3 mg/dl (8.4-10.2); CARBON DIOXIDE 23 mmol/L (21-31); CHLORIDE 113 mmol/L (97-110); CREATININE 2.57 mg/dl (0.61-1.24); Estimated GFR 27 mL/min (>60); GLUCOSE 99 mg/dl (70-220); MAGNESIUM 2.4 mg/dl (1.7-2.5); PHOSPHORUS 4.9 mg/dl (2.5-4.9); POTASSIUM 4.8 mmol/L (3.5-5.1); SODIUM 142 mmol/L (135-144)
[2018-11-08 07:03] LABS: TROPONIN-I < 0.012 ng/ml (0.000-0.120)
[2018-11-08] MEDS: INSULIN ASPART [NOVOLOG] 3 ML PEN SC ×4 (07:35→21:00)
[2018-11-08] MEDS: BUMETANIDE 1 MG TAB PO ×2 (08:26→21:13)
[2018-11-08] MEDS: CHOLECALCIFEROL 2,000 UNIT CAP PO (08:26)
[2018-11-08] MEDS: LISINOPRIL 5 MG TAB PO (08:27)
[2018-11-08] MEDS: METOPROLOL (XL) 50 MG TAB PO (08:27)
[2018-11-08] MEDS: FERROUS SULFATE (EC) 325 MG TAB PO (08:27)
[2018-11-08] MEDS: CALCIUM ACETATE 667 MG CAP PO ×3 (08:28→17:17)
[2018-11-08] MEDS: AMLODIPINE 10 MG TAB PO (08:28)
[2018-11-08 18:01] LABS: ALBUMIN 2.9 g/dL (3.8-4.8); ALPHA-1-GLOBULINS 0.3 g/dL (0.2-0.3); ALPHA-2-GLOBULINS 0.7 g/dL (0.5-0.9); BETA 2 GLOBULINS 0.4 g/dL (0.2-0.5); BETA GLOBULINS 0.4 g/dL (0.4-0.6); GAMMA GLOBULINS 0.9 g/dL (0.8-1.7)
[2018-11-08] MEDS: ATORVASTATIN 40 MG TAB PO (21:13)
[2018-11-09 06:36] LABS: ANION GAP 5 (5-13); BLOOD UREA NITROGEN 47 mg/dl (7-20); CALCIUM 8.2 mg/dl (8.4-10.2); CARBON DIOXIDE 23 mmol/L (21-31); CHLORIDE 111 mmol/L (97-110); CREATININE 2.93 mg/dl (0.61-1.24); Estimated GFR 23 mL/min (>60); GLUCOSE 105 mg/dl (70-220); POTASSIUM 4.6 mmol/L (3.5-5.1); SODIUM 139 mmol/L (135-144)
[2018-11-09] MEDS: INSULIN ASPART [NOVOLOG] 3 ML PEN SC ×4 (07:55→20:18)
[2018-11-09] MEDS: CALCIUM ACETATE 667 MG CAP PO ×3 (07:55→17:31)
[2018-11-09] MEDS: FERROUS SULFATE (EC) 325 MG TAB PO (08:57)
[2018-11-09] MEDS: BUMETANIDE 1 MG TAB PO ×2 (08:57→20:16)
[2018-11-09] MEDS: CHOLECALCIFEROL 2,000 UNIT CAP PO (08:57)
[2018-11-09] MEDS: LISINOPRIL 5 MG TAB PO (08:58)
[2018-11-09] MEDS: METOPROLOL (XL) 50 MG TAB PO (08:58)
[2018-11-09] MEDS: AMLODIPINE 10 MG TAB PO (08:59)
[2018-11-09] MEDS: ENOXAPARIN 30 MG/0.3 ML SYG SC (09:21)
[2018-11-09 17:31] LABS: CREATININE, RANDOM URINE 45 mg/dL (20-320); MICROALBUMIN 331.7 mg/dL; MICROALBUMIN/CREATININE RATIO 7371 (<30)
[2018-11-09] MEDS: ATORVASTATIN 40 MG TAB PO (20:16)
[2018-11-09] MEDS: hydrALAzine 20 MG INJ IV (23:33)
[2018-11-10] MEDS: ACETAMINOPHEN 325 MG TAB PO (00:51)
[2018-11-10 05:37] LABS: ANION GAP 3 (5-13); BLOOD UREA NITROGEN 45 mg/dl (7-20); CARBON DIOXIDE 24 mmol/L (21-31); CHLORIDE 111 mmol/L (97-110); CREATININE 2.72 mg/dl (0.61-1.24); Estimated GFR 25 mL/min (>60); GLUCOSE 97 mg/dl (70-220); MAGNESIUM 2.4 mg/dl (1.7-2.5); PHOSPHORUS 4.7 mg/dl (2.5-4.9); POTASSIUM 4.4 mmol/L (3.5-5.1); SODIUM 138 mmol/L (135-144)
[2018-11-10] MEDS: INSULIN ASPART [NOVOLOG] 3 ML PEN SC ×2 (07:50→12:52)
[2018-11-10] MEDS: AMLODIPINE 10 MG TAB PO (08:45)
[2018-11-10] MEDS: CALCIUM ACETATE 667 MG CAP PO ×2 (08:45→12:52)
[2018-11-10] MEDS: LISINOPRIL 20 MG TAB PO (08:45)
[2018-11-10] MEDS: FERROUS SULFATE (EC) 325 MG TAB PO (08:45)
[2018-11-10] MEDS: METOPROLOL (XL) 50 MG TAB PO (08:46)
[2018-11-10] MEDS: ENOXAPARIN 30 MG/0.3 ML SYG SC (08:49)
[2018-11-10] MEDS: BUMETANIDE 1 MG TAB PO (09:55)
[2018-11-10] MEDS: CHOLECALCIFEROL 2,000 UNIT CAP PO (11:43)
== END 2018-11-10 16:10 | disposition home or self-care (01) | DRG 291 ==
LOC: MS1 11-10 00:33 → E/R 17:40 → TEL 21:16
DX: I13.0 Hypertensive heart and chronic kidney disease with heart failure and stage 1 through stage 4 chronic kidney disease, or unspecified chronic kidney disease (principal); I50.33 Acute on chronic diastolic (congestive) heart failure; N17.9 Acute kidney failure, unspecified; N18.4 Chronic kidney disease, stage 4 (severe); E11.22 Type 2 diabetes mellitus with diabetic chronic kidney disease; D63.8 Anemia in other chronic diseases classified elsewhere; Z79.4 Long term (current) use of insulin; F17.200 Nicotine dependence, unspecified, uncomplicated
CPT/HCPCS: 36415; 71045; 80048; 80053; 80307; 81001; 81003; 82043; 82306; 82550; 82553; 82570; 82652; 82962; 83735; 83880; 83970; 84100; 84155; 84156; 84165; 84166; 84300; 84443; 84484; 85025; 85610; 86320; 86325; 93005; 93970; 96374; 97110; 97116; 97162; 97166; 97530; 97535; 99285-25